=== PATIENT | female | born 1975 | race Caucasian/White ===

== ENCOUNTER 2020-11-05 18:02 | Emergency (ER) | payer MEDICAID, SELFPAY ==
[~2020-11-05] VITALS: Ht 157.5 cm; Wt 65.8 kg
[2020-11-05 18:03] VITALS: BP 131/89; Ht 157.5 cm; Wt 65.8 kg
== END 2020-11-05 22:18 | disposition home or self-care (01) ==
LOC: ED 18:02
DX: U07.1 COVID-19 (principal); J12.89 Other viral pneumonia